=== PATIENT | female | born 1935 | race American Indian/Alaskan Native ===

== ENCOUNTER 2018-11-20 08:20 | Outpatient (CLI) | payer MEDICARE ==
--- NOTE | 2018-11-20 12:12 | Vascular Lab Report ---
PROCEDURE: VL VENOUS DUPLEX LE LT HISTORY: LEFT LOWER VENOUS DOPPLER DVT, CHEST PAIN, EDEMA FINDINGS: Real-time ultrasound of the left leg was performed using grayscale and color Doppler images . These images demonstrate no evidence of deep venous thrombus in left common femoral vein, superficial femoral vein, popliteal vein and posterior tibial vein. IMPRESSION: No DVT in left leg This document is electronically signed by Job Hernandez MD., November 20 2018 12:10:19 PM ET
== END 2018-11-20 08:21 | disposition home or self-care (01) ==
LOC: VAS 08:20
PROVIDERS: ATTEND Internal Medicine Cardiovascular Disease
DX: R07.9 Chest pain, unspecified (principal); R60.9 Edema, unspecified; I10 Essential (primary) hypertension
CPT/HCPCS: 93306

== ENCOUNTER 2019-09-01 09:22 | Emergency (ER) | payer MEDICARE ==
--- NOTE | 2019-09-01 11:02 | Emergency Department Report ---
HPI - General Chief Complaint: Anxiety Time Seen by Provider: 09/01/19 10:33 - HPI HPI: 84-year-old female presents to the emergency department by EMS from home after she began feeling anxious and shaky upon waking up this morning. The patient denies any headache, slurred speech, numbness, difficulty moving but did have some uncontrollable shaking to her whole body that has since resolved. When the patient began having these symptoms, she went to her next- door neighbor's house who then came over to watch her in her own home. However there was still concerned so EMS was called. She has a past medical history of hypertension, diabetes and previous CVA with some mild residual deficits causing some numbness in the right hand. The patient also has some intermittent vision problems in which she sees "spider webs" but is dealing with this with a primary care physician and travel consultant and she was told it is due to her diabetes. She has not taken anything for her symptoms prior to presentation. The patient denies any previous history of this type of shakiness but sometimes does get some anxiety that she thinks is related to low blood sugar. She has been having some recent issues with elevated blood sugar and her primary care physician, Dr. Silvestre, just recently increased her insulin doses. No fever, chest pain, sh ortness of breath, nausea, vomiting or diaphoresis. ED Past Medical Hx - Past Medical History Previous Medical History?: Yes Hx Hypertension: Yes Hx Heart Attack/AMI: No Hx Congestive Heart Failure: No Hx Diabetes: Yes Hx Deep Vein Thrombosis: No Hx Pulmonary Embolism: No Hx Liver Disease: No Hx Renal Disease: No Hx Sickle Cell Disease: No Hx Arthritis: Yes Hx Seizures: No Hx Kidney Stones: No Hx Asthma: No Hx COPD: No Hx Tuberculosis: No Hx Dementia: No Additional medical history: cardiac stents, - Surgical History Past Surgical History?: No Hx Coronary Stent: Yes Hx Open Heart Surgery: No Hx Pacemaker: No Hx Internal Defibrillator: No Hx Cholecystectomy: No Hx Appendectomy: No Hx Breast Surgery: No Additional Surgical History: cataract surgery-2011 - Social History Smoking Status: Never Smoker Substance Use Type: None - Medications Home Medications: Home Medications Medication Instructions Recorded Confirmed Last Taken Type Clopidogrel Bisulfate [Plavix] 75 mg PO DAILY 09/09/16 09/09/16 09/08/16 History Furosemide [Lasix TAB] 20 mg PO QDAY 09/09/16 09/09/16 09/08/16 History HYDROcodone/APAP 5-325 [[place] 1 each PO Q6HR PRN 09/09/16 09/09/16 09/08/16 History 5-325 mg TAB] Nebivolol HCl [Bystolic] 10 mg PO QDAY 09/09/16 09/09/16 Unknown History Ranolazine ER [Ranexa ER] 500 mg PO DAILY 09/09/16 09/09/16 09/08/16 History Simvastatin [Zocor TAB] 40 mg PO QHS 09/09/16 09/09/16 09/08/16 History Valsartan/Hydrochlorothiazide 1 each PO DAILY 09/09/16 09/09/16 09/08/16 History [Valsartan-Hctz 160-12.5 mg Tab] hydrALAZINE [Apresoline TAB] 25 mg PO BID 09/09/16 09/09/16 Unknown History traZODone 100 mg PO HS 09/09/16 09/09/16 Unknown History Aspirin EC [Halfprin EC] 81 mg PO QDAY #30 tablet 09/12/16 Unknown Rx ED Review of Systems ROS: Stated complaint: ANXIETY/HYPERTENSION Other details as noted in HPI Comment: All other systems reviewed and negative Constitutional: denies: chills, fever Eyes: denies: eye pain, eye discharge ENT: denies: ear pain, throat pain Respiratory: denies: cough, shortness of breath Cardiovascular: denies: chest pain, palpitations Gastrointestinal: denies: abdominal pain, vomiting Genitourinary: denies: dysuria, discharge Musculoskeletal: denies: back pain, arthralgia Skin: denies: rash, lesions Neurological: other (shakiness). denies: headache, weakness Psychiatric: anxiety Physical Exam - Physical Exam Vital Signs: Vital Signs 09/01/19 10:28 Temperature 98.2 F Pulse Rate 85 Respiratory 15 Rate Blood Pressure 143/62 [Left] O2 Sat by Pulse 100 Oximetry Physical Exam: GENERAL: The patient is well-developed well-nourished. HEENT: Normocephalic. Atraumatic. Patient has moist mucous membranes. EYES: Extraocular motions are intact. Pupils equal and reactive to light bilaterally. No nystagmus. NECK: Supple. Trachea is midline. CHEST/LUNGS: Clear to auscultation. There is no respiratory distress noted. HEART/CARDIOVASCULAR: Regular. There is no tachycardia. ABDOMEN: Abdomen is soft, nontender. Patient has normal bowel sounds. There is no abdominal distention. SKIN:Skin is warm and dry. . NEURO: The patient is awake, alert, and oriented. The patient is cooperative. The patient has no focal neurologic deficits. Normal speech. Cranial nerves II through XII grossly intact. No pronator drift. No dysmetria. MUSCULOSKELETAL: There is no tenderness or deformity. There is no limitation range of motion. There is no evidence of acute injury. ED Course Vital Signs 09/01/19 10:28 Temperature 98.2 F Pulse Rate 85 Respiratory 15 Rate Blood Pressure 143/62 [Left] O2 Sat by Pulse 100 Oximetry - Reevaluation(s) Reevaluation #1: 09/01/19 13:56 Lab Results 09/01/19 09/01/19 09/01/19 Range/Units 11:01 11:01 11:01 WBC 6.7 (4.5-11.0) K/mm3 RBC 4.26 (3.65-5.03) M/mm3 Hgb 12.7 (10.1-14.3) gm/dl Hct 37.1 (30.3-42.9) % MCV 87 (79-97) fl MCH 30 (28-32) pg MCHC 34 (30-34) % RDW 13.1 L (13.2-15.2) % Plt Count 227 (140-440) K/mm3 Lymph % (Auto) 27.2 (13.4-35.0) % [place] % (Auto) 11.1 H (0.0-7.3) % Eos % (Auto) 4.0 (0.0-4.3) % Baso % (Auto) 0.7 (0.0-1.8) % Lymph # 1.8 (1.2-5.4) K/mm3 [place] # 0.7 (0.0-0.8) K/mm3 Eos # 0.3 (0.0-0.4) K/mm3 Baso # 0.0 (0.0-0.1) K/mm3 Seg Neutrophils % 57.0 (40.0-70.0) % Seg Neutrophils # 3.8 (1.8-7.7) K/mm3 Sodium 148 H (137-145) mmol/L Potassium 3.6 (3.6-5.0) mmol/L Chloride 108.3 H (98-107) mmol/L Carbon Dioxide 25 (22-30) mmol/L Anion Gap 18 mmol/L BUN 39 H (7-17) mg/dL Creatinine 1.7 H (0.7-1.2) mg/dL Estimated GFR 35 ml/min BUN/Creatinine Ratio 23 % Glucose 80 (65-100) mg/dL Calcium 9.9 (8.4-10.2) mg/dL Total Bilirubin 0.30 (0.1-1.2) mg/dL AST 18 (5-40) units/L ALT 14 (7-56) units/L Alkaline Phosphatase 54 (35-129) units/L Troponin T < 0.010 (0.00-0.029) ng/mL Total Protein 7.5 (6.3-8.2) g/dL Albumin 3.8 L (3.9-5) g/dL Albumin/Globulin Ratio 1.0 % TSH 1.380 (0.270-4.200) mlU/mL Urine Color (Yellow) Urine Turbidity (Clear) Urine pH (5.0-7.0) Ur Specific [place] (1.003-1.030) Urine Protein (Negative) mg/dL Urine Glucose (UA) (Negative) mg/dL Urine Ketones (Negative) mg/dL Urine Blood (Negative) Urine Nitrite (Negative) Urine Bilirubin (Negative) Urine Urobilinogen (<2.0) mg/dL Ur Leukocyte Esterase (Negative) Urine WBC (Auto) (0.0-6.0) /HPF Urine RBC (Auto) (0.0-6.0) /HPF U Epithel Cells (Auto) (0-13.0) /HPF 09/01/19 Range/Units 11:54 WBC (4.5-11.0) K/mm3 RBC (3.65-5.03) M/mm3 Hgb (10.1-14.3) gm/dl Hct (30.3-42.9) % MCV (79-97) fl MCH (28-32) pg MCHC (30-34) % RDW (13.2-15.2) % Plt Count (140-440) K/mm3 Lymph % (Auto) (13.4-35.0) % [place] % (Auto) (0.0-7.3) % Eos % (Auto) (0.0-4.3) % Baso % (Auto) (0.0-1.8) % Lymph # (1.2-5.4) K/mm3 [place] # (0.0-0.8) K/mm3 Eos # (0.0-0.4) K/mm3 Baso # (0.0-0.1) K/mm3 Seg Neutrophils % (40.0-70.0) % Seg Neutrophils # (1.8-7.7) K/mm3 Sodium (137-145) mmol/L Potassium (3.6-5.0) mmol/L Chloride (98-107) mmol/L Carbon Dioxide (22-30) mmol/L Anion Gap mmol/L BUN (7-17) mg/dL Creatinine (0.7-1.2) mg/dL Estimated GFR ml/min BUN/Creatinine Ratio % Glucose (65-100) mg/dL Calcium (8.4-10.2) mg/dL Total Bilirubin (0.1-1.2) mg/dL AST (5-40) units/L ALT (7-56) units/L Alkaline Phosphatase (35-129) units/L Troponin T (0.00-0.029) ng/mL Total Protein (6.3-8.2) g/dL Albumin (3.9-5) g/dL Albumin/Globulin Ratio % TSH (0.270-4.200) mlU/mL Urine Color Yellow (Yellow) Urine Turbidity Clear (Clear) Urine pH 6.0 (5.0-7.0) Ur Specific [place] 1.011 (1.003-1.030) Urine Protein <15 mg/dl (Negative) mg/dL Urine Glucose (UA) Neg (Negative) mg/dL Urine Ketones Neg (Negative) mg/dL Urine Blood Neg (Negative) Urine Nitrite Neg (Negative) Urine Bilirubin Neg (Negative) Urine Urobilinogen < 2.0 (<2.0) mg/dL Ur Leukocyte Esterase Neg (Negative) Urine WBC (Auto) 1.0 (0.0-6.0) /HPF Urine RBC (Auto) 1.0 (0.0-6.0) /HPF U Epithel Cells (Auto) 5.0 (0-13.0) /HPF ED Medical Decision Making - Lab Data Result diagrams: 09/01/19 11:01 09/01/19 11:01 - EKG Data -: EKG Interpreted by Oh EKG shows normal: sinus rhythm, axis, intervals (prolonged FL interval), QRS complexes (Q waves to the inferior leads), ST-T waves Rate: normal - EKG Data When compared to previous EKG there are: no significant change Interpretation: unchanged when compared t (09/09/16) - Radiology Data Radiology results: report reviewed NONENHANCED CT SCAN OF THE HEAD: INDICATION / CLINICAL INFORMATION: 84 years Female; Altered mental status. TECHNIQUE: Routine CT head without contrast. All CT scans at this location are performed using CT dose reduction for ALARA by means of automated exposure control. COMPARISON: CT scan of the head from 09/09/2016 FINDINGS: BRAIN / INTRACRANIAL CONTENTS: No acute hemorrhage, mass effect, midline shift, hydrocephalus, or acute, large territorial infarct. Chronic lacune is seen in the left thalamus bordering the left internal capsule. Moderate to marked cortical involution is seen. Normal te mporal horn tips suggest normal hippocampi. CT findings remain unchanged. CRANIOCERVICAL JUNCTION: No significant abnormality. ORBITS: No significant abnormality of visualized orbits. SINUSES / MASTOIDS: No significant abnormality of the visualized paranasal sinuses or mastoid air cells. ADDITIONAL FINDINGS: None. IMPRESSION: No acute focal parenchymal lesion in the brain Chronic left thalamic lacune Signer Name: Mary Alice Coon MD - Medical Decision Making This patient presents with a complaint of some shaking episode that started upon waking. There was never any syncopal episode or obvious confusion. On examination the patient is a 0 on the NIH stroke scale. The shaking stopped prior to presentation. A CT scan of the head was done that does not show any bleed, shift, mass, ischemia, or any other acute process. Patient's labs are unremarkable except for some renal insufficiency with a GFR of about 35. The patient was last here 3 years ago but had some normal kidney function at that time. However she does follow with a button broacher so there may be some level of chronic kidney disease. EKG was done that does not show any signs of ST elevation [place] or significant dysrhythmia. Vital signs have been stable throughout her ED course including being afebrile. Patient was seen ambulatory in the emergency department and both appears and feels stable. She has been reevaluated multiple times over multiple hours and there has been no further shaking episode, any neurological deficits, or any other signs of distress. For all these reasons the patient appears safe for discharge home at this time. We discussed the renal insufficiency and she will follow up with her button broacher. She will also follow up with her primary care physician and will return to the ER with any worsening of her symptoms or any acute distress. - Differential Diagnosis TIA, hyperthyroidism, dysrhythmia Critical Care Time: No Critical care attestation.: If time is entered above; I have spent that time in minutes in the direct care of this critically ill patient, excluding procedure time. ED Disposition Clinical Impression: Renal insufficiency, Episode of shaking Disposition: DC-01 TO HOME OR SELFCARE Is pt being admited?: No Condition: Stable Instructions: Impaired Kidney Function (ED) Additional Instructions: Please follow up with your primary care physician in the next few days. Please follow-up with your kidney doctor regarding your decreased kidney function. Return to the emergency department immediately with any further episodes of uncontrollable shaking, worsening of your symptoms, or with any acute distress. Referrals: FLORENCIA SILVESTRE MD [Referring] - 2-3 Days [facility], Your [Other] - 2-3 Days Time of Disposition: 13:23
[2019-09-01 11:28] LABS: Basophils % (Auto) 0.7 % (0.0-1.8); Eosinophils # (Auto) 0.3 K/mm3 (0.0-0.4); Hematocrit 37.1 % (30.3-42.9); Hemoglobin 12.7 gm/dl (10.1-14.3); Lymphocytes # (Auto) 1.8 K/mm3 (1.2-5.4); Lymphocytes % (Auto) 27.2 % (13.4-35.0); Mean Corpuscular HGB Conc 34 % (30-34); Mean Corpuscular Volume 87 fl (79-97); Monocytes # (Auto) 0.7 K/mm3 (0.0-0.8); Monocytes % (Auto) 11.1 % (0.0-7.3); Platelet Count 227 K/mm3 (140-440); Red Blood Count 4.26 M/mm3 (3.65-5.03); Red Cell Distribution Width 13.1 % (13.2-15.2)
[2019-09-01 12:15] LABS: Bilirubin,Urine NEG (Negative); Blood,Urine NEG (Negative); Color,Urine Yellow (Yellow); Protein,Urine <15 mg/dL mg/dL (Negative); Urobilinogen,Urine < 2.0 mg/dL (<2.0)
--- NOTE | 2019-09-01 12:18 | Cat Scan Report ---
NONENHANCED CT SCAN OF THE HEAD: INDICATION / CLINICAL INFORMATION: 84 years Female; Altered mental status. TECHNIQUE: Routine CT head without contrast. All CT scans at this location are performed using CT dos e reduction for ALARA by means of automated exposure control. COMPARISON: CT scan of the head from 09/09/2016 FINDINGS: BRAIN / INTRACRANIAL CONTENTS: No acute hemorrhage, mass effect, midline shift, hydrocephalus, or acu te, large territorial infarct. Chronic lacune is seen in the left thalamus bordering the left interna l capsule. Moderate to marked cortical involution is seen. Normal temporal horn tips suggest normal h ippocampi. CT findings remain unchanged. CRANIOCERVICAL JUNCTION: No significant abnormality. ORBITS: No significant abnormality of visualized orbits. SINUSES / MASTOIDS: No significant abnormality of the visualized paranasal sinuses or mastoid air raghav ls. ADDITIONAL FINDINGS: None. IMPRESSION: No acute focal parenchymal lesion in the brain Chronic left thalamic lacune Signer Name: Mary Alice Coon MD Signed: 09/01/2019 12:14 PM Workstation Name: [id number]
[2019-09-01 12:35] LABS: Alanine Aminotransferase 14 units/L (7-56); Albumin 3.8 g/dL (3.9-5); BUN/Creatinine Ratio 23; Blood Urea Nitrogen 39 mg/dL (7-17); Calcium 9.9 mg/dL (8.4-10.2); Hemolysis Index 2
[2019-09-01 13:05] VITALS: BP 143/70
== END 2019-09-01 13:46 | disposition home or self-care (01) ==
LOC: ED 09:22
DX: N28.9 Disorder of kidney and ureter, unspecified (principal); G25.2 Other specified forms of tremor; I10 Essential (primary) hypertension; E11.9 Type 2 diabetes mellitus without complications; M19.90 Unspecified osteoarthritis, unspecified site; Z98.890 Other specified postprocedural states; Z79.899 Other long term (current) drug therapy; Z91.018 Allergy to other foods
CPT/HCPCS: 36415; 70450; 80053; 81001; 82962; 84443; 84484; 85025; 93005; 93010